=== PATIENT | female | born 1990 | race Caucasian/White ===

== ENCOUNTER → 2018-08-11 | Day surgery (SDC) | payer BC ==
[2018-08-10 11:18] LABS: BASOPHILS # (AUTO) 0.1 (0.0-0.1); BASOPHILS % 0.9 % (0.0-1.0); EOSINOPHILS # (AUTO) 0.1 (0.0-0.4); EOSINOPHILS % 1.6 % (0.0-6.0); HEMATOCRIT 38.1 % (34.2-44.1); HEMOGLOBIN 12.7 g/dL (12.0-16.0); LYMPHOCYTES % 29.5 % (18.0-39.1); MEAN CORPUSCULAR HEMOGLOBIN 29.2 pg (28-32); MEAN CORPUSCULAR HGB CONC 33.3 g/dL (31-35); MEAN CORPUSCULAR VOLUME 87.6 fL (81-99); MONOCYTES # (AUTO) 0.8 (0.2-0.8); MONOCYTES % 11.8 % (4.4-11.3); NEUTROPHILS # (AUTO) 3.8 (2.1-6.9); NEUTROPHILS % 56.1 % (38.7-80.0); PLATELET COUNT 387 x10e3/uL (140-360); RED BLOOD COUNT 4.35 x10e6/uL (3.6-5.1); RED CELL DISTRIBUTION WIDTH 12.8 % (11.7-14.4)
[~2018-08-11] MED LIST: BENEFIBER1 EAC1; CORAL CALCIUM390 MG; DEXAMETHASONE SOD PHOS INJ 4 MG/ML VIAL ONE; FENTANYL CITRATE/PF 100MCG/2 ML INJ ONE; FISH OIL 1,0001 EAC2; KETOROLAC TROMETHAMINE 30 MG/ML VIAL ONE; LIDOCAINE HCL 2% LOCAL INJ 5 ML SDV VIAL INJ ONE; MIDAZOLAM HCL 2 MG/2 ML VIAL ONE; MULTI-VITAMIN1 EACH; ONDANSETRON HCL INJ 2MG/ML 2ML 2 MG/ML VIAL ONE; PANTOPRAZOLE SO40 MG PO; PROPOFOL IV EMULSION 10 MG/ML 20 ML VIAL ONE; SEVOFLURANE INHAL SOLN 250 ML PEN BTL ONE; SILVER NITRATE SWABS ONE; TAYTULLA; VITAMIN D1000 UNI1 PO
--- OUTSIDE RECORDS SUMMARY | 2018-08-11 10:56 | XMS REPORT | Continuity of Care Document ---
[facility] Interface Address Unknown Phone Unavailable Problems Problem Status Onset Date Classification Date Reported Comments Source Bilirubin in urine - finding 01/14/2018 Diagnosis 01/14/2018 [facility] Body mass index 25-29 - overweight 01/14/2018 Diagnosis 01/14/2018 [facility] Body Mass Index 25-29 - Overweight 01/14/2018 Problem 01/14/2018 [facility] Gastroesophageal Reflux Disease 01/14/2018 Problem 01/14/2018 [facility] Dysuria 01/14/2018 Problem 01/14/2018 [facility] Proteinuria 01/14/2018 Problem 01/14/2018 [facility] Bilirubin in Urine - Finding 01/14/2018 Problem 01/14/2018 [facility] Ketonuria 01/14/2018 Problem 01/14/2018 [facility] Medications Medication Details Route Status Patient Instructions Ordering Provider Order Date Source Sulfamethoxazole 800 MG / Trimethoprim 160 MG Oral Tablet [Bactrim] Bactrim DS 800 mg-160 mg tablet Take 1 tablet every 12 hours by oral route as directed for 3 days. Active [facility] pantoprazole 40 MG Delayed Release Oral Tablet pantoprazole 40 mg tablet,delayed release TK 1 T PO QD Active [facility] TriNessa Lo 0.18 mg/0.215 mg/0.25 mg-25 mcg tablet TriNessa Lo 0.18 mg/0.215 mg/0.25 mg-25 mcg tablet TK 1 T PO ONCE A DAY Active [facility] Allergies, Adverse Reactions, Alerts Substance Category Reaction Severity Reaction type Status Date Reported Comments Source Ceclor Allergy to substance 01/14/2018 [facility] Paxil Hives Allergy to substance 01/14/2018 [facility] Immunizations Immunization Date Given Site Status Last Updated Comments Source Tdap 04/27/2016 completed [facility] Results Order Name Results Value Reference Range Date Interpretation Comments Source Urinalysis macro (dipstick) panel - Urine COLOR : Red 01/14/2018 [facility] Urinalysis macro (dipstick) panel - Urine CLARITY : Cloudy 01/14/2018 [facility] Urinalysis macro (dipstick) panel - Urine LEUKOCYTES : Negative 01/14/2018 [facility] Urinalysis macro (dipstick) panel - Urine NITRITES : Positive 01/14/2018 [facility] Urinalysis macro (dipstick) panel - Urine UROBILINOGEN : Normal 01/14/2018 [facility] Urinalysis macro (dipstick) panel - Urine PROTEIN : Trace 01/14/2018 [facility] Urinalysis macro (dipstick) panel - Urine pH : 5.0 01/14/2018 [facility] Urinalysis macro (dipstick) panel - Urine BLOOD : Negative 01/14/2018 [facility] Urinalysis macro (dipstick) panel - Urine SPECIFIC GRAVITY : 1.015 01/14/2018 [facility] Urinalysis macro (dipstick) panel - Urine KETONES : Large (150) 01/14/2018 [facility] Urinalysis macro (dipstick) panel - Urine BILIRUBIN : Large 01/14/2018 [facility] Urinalysis macro (dipstick) panel - Urine GLUCOSE Negative 01/14/2018 [facility] Urinalysis macro (dipstick) panel - Urine COMMENTS : pt taken azo 01/14/2018 [facility] Vital Signs Vital Sign Value Date Comments Source Diastolic (mm Hg) 78 01/14/2018 [facility] Height 65 01/14/2018 [facility] Systolic (mm Hg) 115 01/14/2018 [facility] Weight 173 01/14/2018 [facility] Encounters Location Location Details Encounter Type Encounter Number Reason For Visit Attending Provider ADM Date DC Date Status Source [place] - [facility] - [id number] Bazzi-C: [address] [place] [address], Ph. [id number] Stephanie Pryor 01/14/2018 [facility] Procedures Procedure Code Date Perfomer Comments Source
--- OUTSIDE RECORDS SUMMARY | 2018-08-11 10:56 | XMS REPORT | Encounter Summary ---
Author Organization Unknown Address [address] [place] [id number] Phone [phone] Care Team Providers Care Coverage Specialist Name Role Phone Karel Sifuentes MD 3 [phone] Reason for Visit Medical Complaint Instructions 1. Dysuria urinalysis, dipstick painful urination (dysuria): care instructions Bactrim DS 800 mg-160 mg tablet culture, urine 2. Proteinuria proteinuria: care instructions 3. Ketonuria 4. Bilirubin in urine - finding 5. Body mass index 25-29 - overweight body mass index: care instructions Discussion Note Pt is in NAD; Verbalizes understanding of all instructions with no questions at this time. Plan of Care Patient Instructions Recommend proper hydration and frequent urination. Avoid douching, Recommend urinating after sexual intercourse. Recommend wipe front to back after urinating. Avoid using tubs. Take medications as prescribed. Follow up with your PCP within 2-3 days if symptoms worsen as discussed and within a week for re-assessment of ketones, bilirubin and protein in urine. Recommend follow a low sodium/fat/carb diet and exercise 30-45 mins/d 3-4 days a week once symptoms resolve. Reminders Provider Appointments None recorded. Lab Urinalysis, Dipstick 01/14/2018 [facility] Culture, Urine 01/14/2018 [facility] Referral None recorded. Procedures None recorded. Surgeries None recorded. Imaging None recorded. Medications Name Start Date Bactrim DS 800 mg-160 mg tablet Take 1 tablet every 12 hours by oral route as directed for 3 days. pantoprazole 40 mg tablet,delayed release TK 1 T PO QD TriNessa Lo 0.18 mg/0.215 mg/0.25 mg-25 mcg tablet TK 1 T PO ONCE A DAY Medications Administered None recorded. Vitals Height Weight BMI Blood Pressure 5 ft 5 in 173 lbs 28.8 kg/m2 115/78 mm[Hg] Lab Results Date Name Specimen Result Interpretation Description Value Range Status Address 01/14/2018 Urinalysis, Dipstick Color : Red [facility]: [address] [place], [place] Clarity : Cloudy [facility]: [facility] Leukocytes : Negative [facility]: [address] [place] [address] Nitrites : Positive [facility]: [address] [place] [address] Urobilinogen : Normal [facility]: [address] [place] [address] Protein : Trace [facility]: [address] [place] [address] Ph : 5.0 [facility]: [address] [place] [address] Blood : Negative [facility]: [address] [place] [address] Specific [place] : 1.015 [facility]: [address] [place] [address] Ketones : Large (150) [facility]: [address] [place] [address] Bilirubin : Large [facility]: [address] [place] [address] Glucose Negative [facility]: [address] [place] [address] Comments : pt taken azo [facility]: [address] [place] [address] Allergies Code Code System Name Reaction Severity Status Onset Ceclor Active 375661 RxNorm Paxil Hives Active Problems Name Status Onset Date Source Body Mass Index 25-29 - Overweight Active 01/14/2018 Gastroesophageal Reflux Disease Active 01/14/2018 Dysuria Active 01/14/2018 Proteinuria Active 01/14/2018 Bilirubin in Urine - Finding Active 01/14/2018 Ketonuria Active 01/14/2018 Procedures None recorded. Vaccine List Vaccine Type Tdap 04/27/2016 Social History Smoking Status Never Smoker Past Encounters 01/14/2018 Dysuria; Proteinuria; Ketonuria; Bilirubin in Urine - Finding; Body Mass Index 25-29 - Overweight Stephanie Pryor, [employer]-[facility]: [address] [place] [address], Ph. History of Present Illness [id number] Reported By: Patient HPI: Location: radiation to , urethra. Quality: pain, pressure, burning. Severity: worsening, moderate. Duration: constant. Onset/Timing: worse, gradual. Context: no known exposure to STD, sexually active, prior history of STDs, [id number], heterosexual, vaginal intercourse, wipes anterior to posterior, voids after intercourse. Modifying factors nothing makes it worse. Associated Symptoms: no fever/chills, no flank pain, no jaundice, no blood in the urine, no vaginal discharge, no blisters on genitals, no rash on genitals, no muscle aches, no headache, pain during urination, painful inability to urinate, urgency, hesitancy, urinary frequency, feeling of incomplete emptying of bladder; bladder pressure Note:
Review of Systems Basic Reported By: Patient Constitutional: Constitutional: no fever Eyes: Eyes: no eye complaints Teag-Ztlt-Lnhqn-Throat: Ears: no ear complaints. Nose: no nose/sinus problems. Mouth/Throat: no sore throat, no bleeding gums, no mouth complaints, no teeth problems Cardiovascular: Cardiovascular: no chest pain, no shortness of breath, no known heart murmur Respiratory: Respiratory: no cough, no wheezing, no shortness of breath Gastrointestinal: Gastrointestinal: no abdominal pain, no vomiting / diarrhea Genitourinary: Genitourinary: no discharge, difficulty urinating, dysuria, urinary urgency; bladder pressure, urinary frequency, hesitancy, and feeling of incomplete emptying of bladder Musculoskeletal: Musculoskeletal: no muscle aches, no muscle weakness, no arthralgias/joint pain, no back pain Skin: Skin: no abnormal / changing mole, no jaundice, no rashes Neurologic: Neurologic: no loss of consciousness, no weakness, no numbness, no seizures, no dizziness, no headaches Physical Exam Adult Basic, Adult Female Complete Reported By: Patient Constitutional: General Appearance: healthy-appearing, well-nourished, well-developed, overweight. Level of Distress: NAD. Ambulation: ambulating normally Psychiatric: Mental Status: active and alert. Orientation: to time, to place, to person Eyes: Lids and Conjunctivae: non-injected, no pallor; no periorbital edema Neck: Neck: supple. Lymph Nodes: no cervical LAD Lungs: Respiratory effort: no dyspnea, no tachypnea, no use of accessory muscles, no intercostal retractions. Auscultation: breath sounds normal Cardiovascular: Heart Auscultation: RRR, no murmurs Musculoskeletal:: Extremities: edema Neurologic: Gait and Station: normal gait Abdomen: Bowel Sounds: normal. Inspection and Palpation: soft, non-distended, no tenderness, no guarding, no rebound tenderness, no masses, no CVA tenderness. Hernia: none palpable
[2018-08-11 14:55] VITALS: BP 128/80
--- NOTE | 2018-08-13 03:43 | Operative Report ---
DATE OF PROCEDURE: 08/11/2018 SURGEON: Lori Caceres MD FEEDER DRIVER: None. PREOPERATIVE DIAGNOSIS: Abnormal uterine bleeding and intrauterine calcifications noted on ultrasound. POSTOPERATIVE DIAGNOSIS: Abnormal uterine bleeding and intrauterine calcifications noted on ultrasound. PROCEDURES PERFORMED: Hysteroscopy, dilation and curettage. ANESTHESIA: General. ESTIMATED BLOOD LOSS: Minimal. COMPLICATIONS: None. FINDINGS: Apparently normal endometrial cavity. SPECIMENS: Endometrial curettings. INDICATIONS: The patient is a 28-year-old female with history of abnormal uterine bleeding it was noted on ultrasound to have multiple calcifications within the endometrial cavity. PROCEDURE NOTE: Prior to the procedure, the risks, benefits, indications, and alternatives were discussed the patient was agreed to proceed. Following anesthesia, the patient was placed in the modified dorsal lithotomy position in [facility]. Prepping and draping were performed in typical sterile fashion, a time-out was done. A weighted speculum was placed in the vagina. The cervix was grasped with single-tooth tenaculum and the cervix was sequentially dilated with Hegar, dilated until the hysteroscope was inserted with the findings as previously mentioned. The TruClear device was inserted into the hysteroscope and used to perform an endometrial curettage under direct visualization. A sharp curettage was then performed until a good gritty texture was noted. Endometrial tissue was sent to pathology. All instruments were removed from the patient. All tenaculum sites were noted to be hemostatic. All sponge, lap, needle, and instrument counts were correct x2. The patient was awakened in stable condition and brought to the recovery room. Lori Caceres MD MEF/MODL /[id number]
== END | disposition home or self-care (01) ==
LOC: OR 10:53
PROVIDERS: ATTEND Obstetrics & Gynecology Obstetrics
DX: N93.8 Other specified abnormal uterine and vaginal bleeding (principal); N85.8 Other specified noninflammatory disorders of uterus; Z01.812 Encounter for preprocedural laboratory examination; Z88.8 Allergy status to other drugs, medicaments and biological substances
CPT/HCPCS: 36415; 58558; 84702; 85025; 88305; J1100; J1885; J2001; J2250; J2405; J2704